=== PATIENT | male | born 1955 | race Caucasian/White ===

== ENCOUNTER 2018-12-27 20:38 | Emergency (ER) | payer OTHER ==
[2018-12-27] MEDS ORDERED: Labetalol 100 MG/20 ML MDV IVPUSH ONE (21:07)
[2018-12-27] MEDS ORDERED: Labetalol 100 MG/20 ML MDV ONE (21:10)
[2018-12-27 21:16] LABS: ANION GAP 13.4; CHLORIDE,CL 104 mmol/L (101-111); SODIUM,NA 139 mmol/L (135-145)
--- NOTE | 2018-12-27 21:49 | EDM.PDOC ---
ED HPI GENERAL MEDICAL PROBLEM - General Stated Complaint: MEMORY PROBLEMS Time Seen by Provider: 12/27/18 20:38 Source of Information: Reports: Patient History Limitations: Reports: Altered Mental Status, Other (Confused) - History of Present Illness INITIAL COMMENTS - FREE TEXT/NARRATIVE: ED ambulatory states told him to come to ER Reported to be sitting at [facility] and talking to and did not know where he was supposed to go or be, Little recollection since leaving [place]. Confirmed with family he had been with prior last known well was 4pm. Albel to relay in conference in [place] unsure shy or what he had done. Reports no complaints of headache, blurred vision or weakness. A[place] to [place] [facility] when asked how located, relayed used to live in [place]. Presented to front desk specialist and stated needs to talk to them . Denies Medical hx. Has PCP Dr Otto in [place]. lives with in [place]. Runs 2 miles 2-3 times daily . Notes family hx no strokes father heart problems at early age. - Related Data Allergies Allergy/AdvReac Type Severity Reaction Status Date / Time No Known Allergies Allergy Verified 12/27/18 22:00 ED ROS GENERAL - Review of Systems Review Of Systems: See Below Constitutional: Denies: Fever, Chills, Malaise, Weakness HEENT: Denies: Eye Pain, Glasses, Vertigo Respiratory: Denies: Shortness of Breath, Wheezing, Pleuritic Chest Pain Cardiovascular: Denies: Chest Pain, Blood Pressure Problem, Dyspnea on Exertion , Edema, Lightheadedness, Palpitations GI/Abdominal: Denies: Abdominal Pain : Reports: No Symptoms Musculoskeletal: Reports: No Symptoms Skin: Reports: No Symptoms Neurological: Reports: Confusion. Denies: Dizziness, Headache, Numbness, Paresthesia, Pre-Existing Deficit, Seizure, Syncope, Tingling, Tremors, Trouble Speaking, Difficulty Walking, Weakness, Change in Speech, Gait Disturbance Psychiatric: Reports: No Symptoms ED EXAM, NEURO - Physical Exam Exam: See Below Exam Limited By: No Limitations General Appearance: Alert, No Apparent Distress Eye Exam: Bilateral Eye: EOMI, Normal Fundi, PERRL Ears: Normal External Exam, Normal TMs Nose: Normal Inspection Throat/Mouth: Normal Inspection, Normal Lips Head Exam: Atraumatic, Normocephalic Neck: Normal Inspection, Full Range of Motion Respiratory/Chest: No Respiratory Distress, Lungs Clear, Normal Breath Sounds Cardiovascular: Normal Peripheral Pulses, Regular Rate, Rhythm, No Edema GI/Abdominal: Normal Bowel Sounds, Non-Tender Neurological: Alert, Normal Mood/Affect, Normal Dorsiflexion, Normal Gait. No: Oriented x 3 (confused to date (year)), Abnormal Gait, Ataxia, No Response to Pain Course - Orders/Labs/Meds Labs: Laboratory Tests 12/27/18 12/27/18 12/27/18 Range/Units 20:47 20:50 20:50 WBC 7.6 (5.0-10.0) 10^3/uL RBC 5.64 (4.6-6.2) 10^6/uL Hgb 16.4 (14.0-18.0) g/dL Hct 47.4 (40.0-54.0) % MCV 84.0 (80-100) fL MCH 29.1 (27.0-34.0) pg MCHC 34.6 (33.0-35.0) g/dL Plt Count 200 (150-450) 10^3/uL Neut % (Auto) 48.0 (42.2-75.2) % Lymph % (Auto) 39.2 (20.5-50.1) % [place] % (Auto) 10.9 H (2-8) % Eos % (Auto) 1.5 (1.0-3.0) % Baso % (Auto) 0.4 (0.0-1.0) % Sodium 139 (135-145) mmol/L Potassium 3.4 L (3.6-5.0) mmol/L Chloride 104 (101-111) mmol/L Carbon Dioxide 25.0 (21.0-31.0) mmol/L Anion Gap 13.4 BUN 21 H (7-18) mg/dL Creatinine 1.3 (0.6-1.3) mg/dL Est Cr Clr Drug Dosing TNP Estimated GFR (MDRD) 56 BUN/Creatinine Ratio 16.15 Glucose 116 H (74-105) mg/dL POC Glucose 96 (70-105) mg/dl Lactic Acid (0.5-2.2) mmol/L Calcium 9.0 (8.4-10.2) mg/dl Total Bilirubin 0.5 (0.2-1.0) mg/dL AST 30 (10-42) IU/L ALT 33 (10-60) IU/L Alkaline Phosphatase 71 (42-121) IU/L Troponin I 0.02 (0.00-0.02) ng/ml Total Protein 7.6 (6.7-8.2) g/dl Albumin 4.4 (3.2-5.5) g/dl Globulin 3.2 Albumin/Globulin Ratio 1.38 Ethyl Alcohol < 5 mg/dL 12/27/18 Range/Units 20:50 WBC (5.0-10.0) 10^3/uL RBC (4.6-6.2) 10^6/uL Hgb (14.0-18.0) g/dL Hct (40.0-54.0) % MCV (80-100) fL MCH (27.0-34.0) pg MCHC (33.0-35.0) g/dL Plt Count (150-450) 10^3/uL Neut % (Auto) (42.2-75.2) % Lymph % (Auto) (20.5-50.1) % [place] % (Auto) (2-8) % Eos % (Auto) (1.0-3.0) % Baso % (Auto) (0.0-1.0) % Sodium (135-145) mmol/L Potassium (3.6-5.0) mmol/L Chloride (101-111) mmol/L Carbon Dioxide (21.0-31.0) mmol/L Anion Gap BUN (7-18) mg/dL Creatinine (0.6-1.3) mg/dL Est Cr Clr Drug Dosing Estimated GFR (MDRD) BUN/Creatinine Ratio Glucose (74-105) mg/dL POC Glucose (70-105) mg/dl Lactic Acid 1.5 (0.5-2.2) mmol/L Calcium (8.4-10.2) mg/dl Total Bilirubin (0.2-1.0) mg/dL AST (10-42) IU/L ALT (10-60) IU/L Alkaline Phosphatase (42-121) IU/L Troponin I (0.00-0.02) ng/ml Total Protein (6.7-8.2) g/dl Albumin (3.2-5.5) g/dl Globulin Albumin/Globulin Ratio Ethyl Alcohol mg/dL Meds: Medications Discontinued Medications Generic Name Dose Route Start Last Admin Trade Name Josi PRN Reason Stop Dose Admin Labetalol HCl 10 mg 12/27/18 21:07 Normodyne IVPUSH 12/27/18 21:08 ONETIME ONE Protocol Labetalol HCl Confirm 12/27/18 21:10 12/27/18 21:25 Normodyne Administered 12/27/18 21:11 2.5 mg Dose Administration 100 mg .ROUTE .STK-MED ONE - Re-Assessments/Exams Free Text/Narrative Re-Assessment/Exam: 12/27/18 21:54 sister here, recognizes readily. Repeats questions, Slight improvement with Labetolol, increase with stimulation and tx between cots. HR stable, no ectopy. Neuro remains unchanged with confusion, recent loss of memory as primary symptoms, has continued to deny other c/o. Dr Suze Mas, accepting patient, Tx via [facility] updated by patients sister. Departure - Departure Time of Disposition: 21:50 Disposition: DC/Tfer to Acute Hospital 02 Condition: Undetermined Clinical Impression: Confusion Hypertension Qualifiers: Hypertension type: unspecified Qualified Code(s): I10 - Essential (primary) hypertension - Discharge Information Referrals: PCP,None [Primary Care Provider] - Forms: ED Department Discharge
== END 2018-12-27 21:53 ==
LOC: DL.ED 20:38
DX: R41.0 Disorientation, unspecified (principal); I10 Essential (primary) hypertension
CPT/HCPCS: 36415; 70450; 71045; 80053; 80320; 82962; 83605; 84484; 85025; 96374; 99285; J3490; G0480